=== PATIENT | female | born 1970 | race Hispanic/Latino ===

== ENCOUNTER 2020-06-18 05:48 | Inpatient (IN) | payer SELFPAY ==
[2020-06-18] VITALS (25 sets, daily range): BP systolic 106–125; BP diastolic 62–74
[~2020-06-18] VITALS: Ht 167.6 cm; Wt 80.9 kg
[2020-06-18 06:09] LABS: APPEARANCE,URINE SLIGHTLY CLOUDY (CLEAR); BILIRUBIN,URINE Negative (NEGATIVE); COLOR,URINE Yellow (YELLOW); GLUCOSE, URINE (UA) Negative (NEGATIVE); KETONES,URINE Negative (NEGATIVE); LEUKOCYTE ESTERASE ,URINE Trace (NEGATIVE); NITRATE,URINE Negative (NEGATIVE); OCCULT BLOOD,URINE Negative (NEGATIVE); PH,URINE 8.5 (5.0-8.0); PROTEIN,URINE Negative (NEGATIVE); UROBILINOGEN,URINE 0.2 mg/dL (0.2-1.0)
[2020-06-18 06:19] LABS: BASOPHILS % (AUTO) 0.6 % (0.0-5.0); HEMATOCRIT 43.1 % (36-48); LYMPHOCYTES % (AUTO) 10.9 % (21.0-51.0); MEAN CORPUSCULAR HEMOGLOBIN 31.3 pg (27.0-33.0); MEAN CORPUSCULAR HGB CONC 34.1 g/dL (32.0-36.0); MEAN CORPUSCULAR VOLUME 91.7 fL (79-99); MONOCYTES % (AUTO) 6.7 % (3.0-13.0); NEUTROPHILS % (AUTO) 80.3 % (40.0-77.0); PLATELET COUNT (AUTO) 220 K/uL (130-400); RED CELL DISTRIBUTION WIDTH 12.4 % (11.0-15.5); WHITE BLOOD COUNT (AUTO) 17.4 K/uL (4.8-10.8)
[2020-06-18 06:19] LABS: BACTERIA,URINE None Seen /HPF (None Seen); MUCUS,URINE Rare LPF (None Seen); RBC,URINE None Seen /HPF (0-1); SQUAMOUS EPITHELIAL CELL,UR Few /HPF (0-2); WBC,URINE None Seen /HPF (0-1)
[2020-06-18 06:29] LABS: CREATININE 0.5 mg/dL (0.5-1.5); POTASSIUM 5.6 mmol/L (3.5-5.1)
[2020-06-18 06:35] LABS: ALBUMIN 3.9 g/dL (3.5-5.0); BILIRUBIN,TOTAL 0.5 mg/dL (0.2-1.0); TOTAL PROTEIN, SERUM 7.9 g/dL (6.0-8.3)
[2020-06-18] MEDS ORDERED: ZOSYN 3.375GM+NS 50ML 50 ML IV ONE (07:44)
[2020-06-18] MEDS ORDERED: ONDANSETRON HCL 4 MG/2 ML VIAL ONE ×2 (07:44→11:35)
[2020-06-18] MEDS ORDERED: MORPHINE SULFATE 4 MG/1ML SYG ONE (07:44)
[2020-06-18] MEDS ORDERED: MORPHINE SULFATE 4 MG/1ML SYG IV PRN (08:45)
[2020-06-18] MEDS ORDERED: ONDANSETRON HCL 4 MG/2 ML VIAL IVP PRN ×2 (08:45→12:00)
[2020-06-18] MEDS ORDERED: ZOSYN 3.375GM+NS 50ML 50 ML IV SCH (08:45)
[2020-06-18] MEDS ORDERED: SODIUM CHLORIDE 0.9% 1000ML 1,000 ML IV SCH (09:00)
[2020-06-18] MEDS ORDERED: FAMOTIDINE/PF 20 MG/2 ML VIAL IV SCH (09:00)
[2020-06-18] MEDS ORDERED: FAMOTIDINE/PF 20 MG/2 ML VIAL IV ONE (09:08)
[2020-06-18] MEDS ORDERED: PROPOFOL 10 MG/ML 20ML VIAL IV ONE (11:17)
[2020-06-18] MEDS ORDERED: MIDAZOLAM HCL 1 MG/ML 2ML VIAL ONE (11:17)
[2020-06-18] MEDS ORDERED: FENTANYL CITRATE PF 50 MCG/1 ML 5ML AMP IV ONE (11:19)
[2020-06-18] MEDS ORDERED: ROCURONIUM 10MG/1ML SYR 10 MG/ML ML ONE (11:36)
[2020-06-18] MEDS ORDERED: ACETAMINOPHEN 325 MG TAB PO PRN (12:00)
[2020-06-18] MEDS ORDERED: BUPIVACAINE/PF 0.25% 30ML VIAL IJ ONE (12:13)
[2020-06-18] MEDS ORDERED: BUPIVACAINE/PF 0.5% 30ML VIAL ONE (12:13)
[2020-06-18] MEDS ORDERED: GLYCOPYRROLATE 1 MG/5 ML SYRINGE ONE (12:15)
[2020-06-18] MEDS ORDERED: EPHEDRINE SULFATE 50 MG/ML AMPULE ONE (12:16)
[2020-06-18] MEDS ORDERED: DEXAMETHASONE SOD PHOSPHATE 4 MG/ML 1ML VIAL ONE (12:35)
[2020-06-18] MEDS ORDERED: KETOROLAC TROMETHAMINE 30MG/ML ONE (12:46)
[2020-06-18] MEDS ORDERED: NEOSTIGMINE 5MG/5ML SYR IV ONE (12:48)
[2020-06-18] MEDS ORDERED: NEOMY SULF/POLYMYXIN B SULFATE 1 ML AMPUL IR ONE (13:21)
[2020-06-18] MEDS ORDERED: MEPERIDINE-PF 25 MG/ML SYG ONE ×2 (13:27→13:36)
--- NOTE | 2020-06-18 14:20 | NUR ---
POST OP PT AAOX3 CAME BY BED WITH SHANIKA [employer], PT HAS SURGERY EPI/AP, VS ARE 97.4 TEMP, HR 82, SPO2 92% ON RA, B/P 113/72, DRESSING TO ABDOMEN ARE DRY AND INTACT, SCD, ARE ON BILATERAL LOWER EXT. PT C/O OF PAIN TO ABDOMEN 7 OUT 10. WILL CONTINUE TO MONITOR
--- NOTE | 2020-06-18 14:55 | NUR ---
POST OP 15 X3 PT CONTINUE TO SLEEP VS ARE STABLE NO CHANGE IN STATUS DRESSING DRY AND INTACT
--- NOTE | 2020-06-18 15:10 | NUR ---
POST OP 15X4 PT IS IN BED WILL CONTINUE TO MONITOR NO CHANGE IN STATUS, NO SOB , VS STABLE
[2020-06-18] MEDS: MORPHINE SULFATE 2 MG/ML 1ML SYG IV PRN ×2 (15:13→22:31)
[2020-06-18] MEDS: ZOSYN 3.375GM+NS 50ML 50 ML IV SCH ×2 (15:14→21:47)
[2020-06-18] MEDS: SODIUM CHLORIDE 0.9% 1000ML 1,000 ML IV SCH (15:16)
--- NOTE | 2020-06-18 15:40 | NUR ---
POST OP X 30X 1 PT AWAKE DRINKING FLUIDS, VS STABLE DRESSING DRY AND INTACT NO CHANGE IN STATUS.
--- NOTE | 2020-06-18 16:10 | NUR ---
POST OP 30X2 PT SITTING UP IN BED, VS STABLE NO COMPLICATION WILL CONTINUE TO MONITOR
--- NOTE | 2020-06-18 16:34 | NUR ---
POST OP 15X2 PT IN BED SLEEPING VS. STABLE NO COMPLICATION DRESSING IS DRY AND INTACT, WILL CONTINUE TO MONITOR
--- NOTE | 2020-06-18 17:10 | NUR ---
POST OP 1HR X1 PT SITTING UP IN BED EATING DINNER, TOLERATED DINNER WELL, DRESSING DRY AND INTACT, VS STABLE.
--- NOTE | 2020-06-18 18:10 | NUR ---
POST OP 1HR X 2 PT TALKING TO FAMILY ON PHONE, NO SOB, HAS NOT VOICE ANY CONCERNS AT THIS TIME.
[2020-06-18] MEDS: FAMOTIDINE/PF 20 MG/2 ML VIAL IV SCH (21:48)
[2020-06-19] MEDS: HYDROCODONE/ACETAMINOPHEN 5/325 MG TAB PO PRN ×2 (03:28→09:01)
[2020-06-19 03:42] VITALS: BP 95/55
[2020-06-19] MEDS: ZOSYN 3.375GM+NS 50ML 50 ML IV SCH ×3 (04:31→20:11)
[2020-06-19 04:50] LABS: BASOPHILS % (AUTO) 0.2 % (0.0-5.0); HEMATOCRIT 36.6 % (36-48); MEAN CORPUSCULAR HEMOGLOBIN 31.6 pg (27.0-33.0); MEAN CORPUSCULAR HGB CONC 33.6 g/dL (32.0-36.0); MEAN CORPUSCULAR VOLUME 94.1 fL (79-99); NEUTROPHILS % (AUTO) 87.4 % (40.0-77.0); PLATELET COUNT (AUTO) 174 K/uL (130-400); RED BLOOD CELL COUNT(AUTO) 3.89 MIL/uL (4.00-5.50); WHITE BLOOD COUNT (AUTO) 20.8 K/uL (4.8-10.8)
[2020-06-19 05:09] LABS: ALBUMIN 2.9 g/dL (3.5-5.0); ASPARTATE AMINOTRANSFERASE 10 U/L (10-37); BILIRUBIN,TOTAL 0.8 mg/dL (0.2-1.0); CARBON DIOXIDE 26 mmol/L (21-32); CHLORIDE 104 mmol/L (101-111); CREATININE 0.9 mg/dL (0.5-1.5); GLOMERULAR FILTR. RATE CALC 70 mL/min (>60); GLUCOSE,RANDOM 123 mg/dL (70-105); POTASSIUM 3.9 mmol/L (3.5-5.1); SODIUM SERUM 138 mmol/L (136-145); TOTAL PROTEIN, SERUM 6.4 g/dL (6.0-8.3); UREA NITROGEN, BLOOD 8 mg/dL (7-18)
[2020-06-19 05:10] LABS: ALANINE AMINOTRANSFERASE < 6 U/L (12-78)
[2020-06-19 07:44] VITALS: BP 104/59
[2020-06-19] MEDS: FAMOTIDINE/PF 20 MG/2 ML VIAL IV SCH ×2 (09:01→20:11)
[2020-06-19 11:01] VITALS: BP 100/57
[2020-06-19] MEDS: MORPHINE SULFATE 2 MG/ML 1ML SYG IV PRN (12:25)
[2020-06-19] MEDS: SODIUM CHLORIDE 0.9% 1000ML 1,000 ML IV SCH ×2 (14:40→18:00)
[2020-06-19 16:04] VITALS: BP 111/58
[2020-06-19 19:07] LABS: HEMATOCRIT 37.1 % (36-48); MEAN CORPUSCULAR HEMOGLOBIN 32.1 pg (27.0-33.0); MEAN CORPUSCULAR HGB CONC 33.7 g/dL (32.0-36.0); MEAN CORPUSCULAR VOLUME 95.4 fL (79-99); RED BLOOD CELL COUNT(AUTO) 3.89 MIL/uL (4.00-5.50); RED CELL DISTRIBUTION WIDTH 13.2 % (11.0-15.5); WHITE BLOOD COUNT (AUTO) 17.3 K/uL (4.8-10.8)
--- NOTE | 2020-06-19 19:10 | NUR ---
D/C PLAN CM spoke to pt regarding d/c planning. Pt is ind. and lives with daughter. States dtr assists in care as needed. CM provided community resources. Plan to home. CM to f/u. Addendum: 06/19/20 at 1911 by TANA SAUNDERS CM Amended: Links added.
[2020-06-19 19:42] VITALS: BP 113/65
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
[2020-06-19] MEDS ORDERED: BISACODYL 10 MG SUPP.RECT RC ONE ×2 (22:45→22:57)
[2020-06-19] MEDS: METOCLOPRAMIDE 10 MG TABLET PO SCH (22:50)
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
[2020-06-19] MEDS ORDERED: METOCLOPRAMIDE 10 MG TABLET ONE (22:57)
[2020-06-19 23:56] VITALS: BP 113/63
[2020-06-20 03:59] VITALS: BP 105/55
[2020-06-20 04:47] LABS: BASOPHILS % (AUTO) 0.3 % (0.0-5.0); EOSINOPHILS % (AUTO) 0.6 % (0.0-8.0); HEMATOCRIT 33.1 % (36-48); LYMPHOCYTES % (AUTO) 8.5 % (21.0-51.0); MEAN CORPUSCULAR HEMOGLOBIN 31.6 pg (27.0-33.0); MEAN CORPUSCULAR HGB CONC 33.5 g/dL (32.0-36.0); MEAN CORPUSCULAR VOLUME 94.3 fL (79-99); MONOCYTES % (AUTO) 5.9 % (3.0-13.0); NEUTROPHILS % (AUTO) 84.2 % (40.0-77.0); PLATELET COUNT (AUTO) 148 K/uL (130-400); RED BLOOD CELL COUNT(AUTO) 3.51 MIL/uL (4.00-5.50); RED CELL DISTRIBUTION WIDTH 13.2 % (11.0-15.5); WHITE BLOOD COUNT (AUTO) 16.7 K/uL (4.8-10.8)
[2020-06-20 05:01] LABS: CREATININE 0.7 mg/dL (0.5-1.5); POTASSIUM 3.5 mmol/L (3.5-5.1)
[2020-06-20] MEDS: ZOSYN 3.375GM+NS 50ML 50 ML IV SCH (05:21)
[2020-06-20 07:30] VITALS: BP 120/70
[2020-06-20] MEDS: FAMOTIDINE/PF 20 MG/2 ML VIAL IV SCH (08:51)
[2020-06-20] MEDS: METOCLOPRAMIDE 10 MG TABLET PO SCH ×2 (08:51→12:31)
[2020-06-20] MEDS ORDERED: AMOX-429 PO (10:00)
[2020-06-20 11:00] VITALS: BP 119/69
--- NOTE | 2020-06-20 14:32 | NUR ---
PATIENT DISCHARGE PATIENT DISCHARGE, IV DISCONTINUED, CATHLON INTACT, BLEEDING CONTROLLED, PATIENT TOLERATED WITHOUT INCIDENT.
== END 2020-06-20 14:45 | disposition home or self-care (01) | DRG 343 ==
LOC: EDH 05:48 → EDHIP 05:49 → 3CH 14:29
PROVIDERS: ADMIT Internal Medicine; ATTEND Internal Medicine
PROC: 0DTJ4ZZ Resection of Appendix, Percutaneous Endoscopic Approach (ICD-10-PCS; principal; 2020-06-18 12:14)
DX: K35.80 Unspecified acute appendicitis (principal); J45.909 Unspecified asthma, uncomplicated; Z86.711 Personal history of pulmonary embolism
CPT/HCPCS: 36415; 74018; 74176; 80048; 80053; 81001; 82550; 83690; 84132; 84484; 85025; 85027; 93005; G0378; J1100; J1885; J2175; J2250; J2270; J2405; J2543; J2704; J2710; J3010; J3490; J7030; J7120